=== PATIENT | male | born 1960 ===

== ENCOUNTER → 2024-12-02 | Day surgery (SDC) | payer OTHER ==
--- NOTE | 2024-12-05 15:17 | HMCSR ---
APPROVED REPORT Laterality: Bilateral Indications i87.1, i87.2, i73.9 VELOCITY AND DOPPLER WAVEFORM ANALYSIS LAP WINDER (R) 114.6cm/sec, Triphasic, LAP WINDER (L) 106.3cm/sec, Triphasic, Prof Fem Art. (R) 64.9cm/sec, Triphasic, Prof Fem Art. (L) 59.2cm/sec, Triphasic, Fem Art Prox. (R) 107.7cm/sec, Triphasic, Fem Art Prox. (L) 72.7cm/sec, Triphasic, Fem Art Mid. (R) 66.0cm/sec, Triphasic, Fem Art Mid. (L) 61.9cm/sec, Triphasic, Fem Art Dist (R) 65.3cm/sec, Triphasic, Fem Art Dist. (L) 48.3cm/sec, Triphasic, Pop Art(AK) (R) 56.3cm/sec, Triphasic, Pop Art (AK) (L) 64.9cm/sec, Triphasic, Pop Art (Fossa)(R) 40.8cm/sec, Triphasic, Pop Art (Fossa) (L) 58.7cm/sec, Triphasic, Pop Art(BK) (R) 77.5cm/sec, Triphasic, Pop Art (BK) (L) 57.3cm/sec, Triphasic, PLATE SHEAR OPERATOR Prox. (R) 44.9cm/sec, Triphasic, PLATE SHEAR OPERATOR Prox. (L) 60.0cm/sec, Triphasic, PLATE SHEAR OPERATOR Mid. (R) 73.4cm/sec, Triphasic, PLATE SHEAR OPERATOR Mid. (L) 55.2cm/sec, Triphasic, PLATE SHEAR OPERATOR Dist. (R) 26.5cm/sec, Biphasic, PLATE SHEAR OPERATOR Dist. (L) 38.1cm/sec, Biphasic, Per Art Prox. (R) 35.1cm/sec, Biphasic, Per Art Prox. (L) 39.3cm/sec, Biphasic, Per Art Mid. (R) 40.8cm/sec, Biphasic, Per Art Mid. (L) 48.3cm/sec, Biphasic, Per Art Dist. (R) 22.4cm/sec, Biphasic, Per Art Dist. (L) 33.1cm/sec, Biphasic, NICOLETTE Prox. (R) 67.3cm/sec, Triphasic, NICOLETTE Prox. (L) 66.9cm/sec, Triphasic, NICOLETTE Mid. (R) 24.1cm/sec, Biphasic NICOLETTE Mid. (L) 31.1cm/sec, Biphasic, NICOLETTE Dist. (R) 43.7cm/sec, Biphasic, NICOLETTE Dist. (L) 48.3cm/sec, Biphasic, Technologist Impression Multiphasic waveforms in the bilateral lower extremities. Conclusion No evidence of significant arterial insufficiency of bilateral lower extremities. Conclusion No evidence of significant arterial insufficiency of bilateral lower extremities.
--- NOTE | 2024-12-05 15:18 | HMCSR ---
APPROVED REPORT Bilateral Lower Extremity Venous Study for DVT., Venous Competence. Indications i87.1, i87.2 Vein Imaging CFV (R): Normal flow, augmentation and compression. No evidence of DVT. 15.4mm 433ms of reflux. SFJ (R): Normal flow, augmentation and compression. No evidence of DVT. FEM (R): Normal flow, augmentation and compression. No evidence of DVT. POP (R): Normal flow, augmentation and compression. No evidence of DVT. DFV (R): Normal flow, augmentation and compression. No evidence of DVT. PTV (R): Normal flow, augmentation and compression. No evidence of DVT. Peroneals (R): Normal flow, augmentation and compression. No evidence of DVT. CFV (L): Normal flow, augmentation and compression. No evidence of DVT. 15.9mm 0.0ms of reflux. SFJ (L): Normal flow, augmentation and compression. No evidence of DVT. FEM (L): Normal flow, augmentation and compression. No evidence of DVT. POP (L): Normal flow, augmentation and compression. No evidence of DVT. DFV (L): Normal flow, augmentation and compression. No evidence of DVT. PTV (L): Normal flow, augmentation and compression. No evidence of DVT. Peroneals (L): Normal flow, augmentation and compression. No evidence of DVT. Technologist Impression Deep veins of the bilateral lower extremities appear patent and compressible without thrombus. No significant deep venous reflux seen Superficial venous insufficiency noted in the LGSV at junction. RGSV junction 66mm 0.0ms thigh 3.7mm 0.0ms knee 2.8mm 0.0ms calf 2.8mm 0.0ms RSSV prox 1.4mm 0.0ms mid 1.7mm 383ms LGSV junction 6.9mm 544ms thigh 2.3mm 0.0ms knee 3.3mm 0.0ms calf 1.9mm 0.0ms LSSV prox 1.8mm 0.0ms mid 1.6mm 0.0ms Conclusion Significant superficial venous reflux of left greater saphenous vein Moderate deep venous reflux noted Conclusion Significant superficial venous reflux of left greater saphenous vein Moderate deep venous reflux noted
== END | disposition home or self-care (01) ==
LOC: DAH 07:42
PROVIDERS: ATTEND Internal Medicine Cardiovascular Disease
DX: I87.2 Venous insufficiency (chronic) (peripheral) (principal); I87.1 Compression of vein; I73.9 Peripheral vascular disease, unspecified
CPT/HCPCS: 93925; 93970